=== PATIENT | male | born 1995 | race Caucasian/White ===

== ENCOUNTER 2018-01-09 15:18 | Emergency (ER) | payer BC ==
[~2018-01-09] VITALS: Ht 188 cm; Wt 82.1 kg
[2018-01-09 15:23] VITALS: BP 120/74
[2018-01-09] MEDS ORDERED: BACITRACIN ZINC OINT 500U/GM, 0.9 GM ONE (16:01)
== END 2018-01-09 16:07 | disposition home or self-care (01) ==
LOC: ED 16:04
DX: S21.219D Laceration without foreign body of unspecified back wall of thorax without penetration into thoracic cavity, subsequent encounter (principal); X58.XXXD Exposure to other specified factors, subsequent encounter
CPT/HCPCS: 99282; 99283